=== PATIENT | male | born 1955 | race Caucasian/White ===

== ENCOUNTER → 2020-07-11 | Outpatient (REF) | payer OTHER ==
[2020-07-11 14:46] LABS: PERCENT SATURATION 26.9 % (19.7-50.0)
== END ==
LOC: M LAB REF 13:34
PROVIDERS: ATTEND Nurse Practitioner Adult Health
DX: R74.8 Abnormal levels of other serum enzymes (principal)

== ENCOUNTER → 2020-10-22 | Outpatient (CLI) | payer OTHER ==
--- NOTE | 2020-10-22 07:40 | REP ---
INDICATION: ELEVATED LFT'S COMPARISON: None. TECHNIQUE: Real time peoples scale ultrasound examination using curved array transducer. FINDINGS: Liver is mildly hyperechoic suggesting fatty infiltration period small 9 x 5 x 4 mm presumed cyst in the right lobe. Liver measures 19 cm in craniocaudal length suggesting mild hepatomegaly. Pancreas is incompletely evaluated due to interposed bowel gas. The gallbladder is normal and without gallstones, wall thickening, or pericholecystic fluid. No biliary ductal dilatation is appreciated and the common bile duct measures 4.0 mm diameter. Right kidney is normal in reniform shape without hydronephrosis and measures 12.7 x 5.5 x 4.3 cm. No ascites in the visualized right upper quadrant. IMPRESSION: Mild hepatomegaly and hepatosteatosis. Subcentimeter hypodensity in the liver likely represents small cyst. <Electronically signed by Francisco Javier Holman > 10/22/20 [id number]
== END ==
LOC: M RAD 07:00
PROVIDERS: ATTEND Nurse Practitioner Adult Health
DX: R94.5 Abnormal results of liver function studies (principal)

== ENCOUNTER → 2021-01-01 | Outpatient (REF) | payer OTHER | LOC: M LAB REF 16:41 | PROVIDERS: ATTEND Nurse Practitioner Adult Health | DX: R74.8 Abnormal levels of other serum enzymes (principal) ==

== ENCOUNTER → 2021-05-06 | Outpatient (CLI) | payer MEDICARE, OTHER ==
--- NOTE | 2021-05-06 15:17 | REP ---
INDICATION: DYSPNEA COMPARISON: None. TECHNIQUE: PA and lateral. FINDINGS: Chronic appearing bilateral pleuroparenchymal changes are suggested. Superimposed acute opacity involving the periphery of the right lower lung zone and possibly along the lateral aspect of the left mid lung zone cannot be excluded. No definite effusion. No pneumothorax. IMPRESSION: Chronic appearing pleuroparenchymal changes. Superimposed acute airspace disease cannot be excluded. <Electronically signed by Francisco Javier Holman > 05/06/21 [id number]
== END ==
LOC: M WUC 14:38
PROVIDERS: ATTEND Nurse Practitioner Adult Health
DX: R06.00 Dyspnea, unspecified (principal)

== ENCOUNTER → 2021-06-04 | Outpatient (CLI) | payer MEDICARE, OTHER | LOC: M WUC 08:32 | PROVIDERS: ATTEND Nurse Practitioner Adult Health | DX: R06.00 Dyspnea, unspecified (principal) ==

== ENCOUNTER → 2022-10-29 | Outpatient (REF) | payer MEDICARE, OTHER ==
[2022-10-29 13:05] LABS: INR 0.93; PROTHROMBIN TIME 12.7 SECONDS (12.5-14.5)
[2022-10-29 13:06] LABS: PARTIAL THROMBOPLASTIN TIME 26.1 SECONDS (24.8-34.2)
[2022-10-29 13:13] LABS: APPEARANCE, URINE HAZY (CLEAR); BACTERIA, URINE AUTO 1+ (NEGATIVE); BILIRUBIN, URINE AUTO NEGATIVE (NEGATIVE); BLOOD, URINE BLOOD 1+ (NEGATIVE); COLOR, URINE YELLOW (YELLOW); GLUCOSE, URINE (UA) AUTO 3+ mg/dL (NEGATIVE); KETONE, URINE AUTO NEGATIVE (NEGATIVE); LEUKOCYTE ESTERASE, URINE AUTO 3+ (NEGATIVE); MUCUS, URINE SMALL (NEGATIVE); NITRITE, URINE AUTO NEGATIVE (NEGATIVE); PROTEIN, URINE AUTO NEGATIVE (NEGATIVE); RBC, URINE AUTO 9 /HPF (0-3); SPECIFIC GRAVITY URINE AUTO 1.032 (1.002-1.035); SQUAMOUS EPITHELIAL CELL UR AU 2 /HPF (0-6); UROBILINOGEN, URINE AUTO 0.2 mg/dL (0.0-2.0); WBC, URINE AUTO 76 /HPF (0-3)
== END ==
LOC: M LAB REF 12:06
PROVIDERS: ATTEND Internal Medicine
DX: Z01.810 Encounter for preprocedural cardiovascular examination (principal); Z79.01 Long term (current) use of anticoagulants; N39.0 Urinary tract infection, site not specified

== ENCOUNTER 2022-11-12 12:52 | Day surgery (SDC) | payer MEDICARE, OTHER ==
[~2022-11-12] VITALS: Ht 177.8 cm; Wt 91.9 kg
[~2022-11-12 12:52] MED LIST: ASPI81TA26 PO; FARX1TAB3 PO; LEVO1TAB38 PO; LISI20TA33 PO; METF-877 PO; SIMV40TA20 PO; ceFAZolin SOD 2 GM in IV 1 EA IV ONE
[2022-11-12] MEDS ORDERED: LR 1,000 ML IV SCH ×2 (13:25→16:30)
[2022-11-12] MEDS ORDERED: propofoL 200 MG/20 ML VIAL As Ordered ONE (15:22)
[2022-11-12] MEDS ORDERED: fentaNYL 250 MCG/5 ML INJECTION As Ordered ONE (15:22)
[2022-11-12] MEDS ORDERED: LIDOCAINE 2% 100MG/5ML SDV (FOR ANES.) As Ordered ONE (15:22)
[2022-11-12] MEDS ORDERED: ONDANSETRON 4MG 2ML VIAL As Ordered ONE (15:22)
[2022-11-12] MEDS ORDERED: MIDAZOLAM INJ 2MG/2ML VIAL As Ordered ONE (15:22)
[2022-11-12] MEDS ORDERED: ACETAMINOPHEN 1000MG 100ML IV BAG As Ordered ONE (15:23)
[2022-11-12] MEDS ORDERED: LIDOCAINE 1% SDV 30ML VIAL As Ordered ONE (15:26)
[2022-11-12] MEDS ORDERED: HYDROMORPHONE HCL 0.5 MG/ 0.5 ML SYRINGE IV PRN (16:30)
[2022-11-12] MEDS ORDERED: oxyCODONE 5MG TAB PO PRN (16:30)
[2022-11-12] MEDS ORDERED: fentaNYL 100 MCG/2 ML INJECTION IV PRN (16:30)
[2022-11-12] MEDS ORDERED: ONDANSETRON 4MG 2ML VIAL IV PRN (16:30)
[2022-11-12] MEDS ORDERED: HYDR-3713 PO (16:32)
[2022-11-12] MEDS ORDERED: CEPH500T PO (16:32)
[2022-11-12] MEDS ORDERED: LIDOCAINE 2% JELLY 6ML SYRINGE TOP STA (16:42)
[2022-11-12 17:30] VITALS: BP 121/66; TEMP 98.2; O2SAT 97
== END 2022-11-12 17:51 | disposition home or self-care (01) ==
LOC: M SDC 12:52
PROVIDERS: ATTEND Urology
DX: N47.1 Phimosis (principal); E11.9 Type 2 diabetes mellitus without complications; Z79.84 Long term (current) use of oral hypoglycemic drugs; Z79.82 Long term (current) use of aspirin; Z79.899 Other long term (current) drug therapy
CPT/HCPCS: 54161; 88304; J0131; J0690; J1100; J2250; J2405; J3010

== ENCOUNTER 2023-11-10 11:24 | Day surgery (SDC) | payer MEDICARE, OTHER ==
[~2023-11-10] VITALS: Ht 177.8 cm; Wt 89.4 kg
[~2023-11-10 11:24] MED LIST changes: +CEPH500T PO; +ECOT81TA5 PO; +HYDR-3713 PO; +NS 1,000 ML IV ONE; -ceFAZolin SOD 2 GM in IV 1 EA IV ONE
[2023-11-10 14:16] VITALS: BP 137/85; O2SAT 99
== END 2023-11-10 14:19 | disposition home or self-care (01) ==
LOC: M OPP 11:24
PROVIDERS: ATTEND Internal Medicine Gastroenterology
DX: Z12.11 Encounter for screening for malignant neoplasm of colon (principal); D12.2 Benign neoplasm of ascending colon; K64.0 First degree hemorrhoids; K63.5 Polyp of colon; Z79.2 Long term (current) use of antibiotics; Z79.82 Long term (current) use of aspirin; Z79.84 Long term (current) use of oral hypoglycemic drugs; Z79.899 Other long term (current) drug therapy